=== PATIENT | female | born 1960 | race Two or more races ===

== ENCOUNTER 2017-09-09 14:50 | Emergency (ER) | payer SELFPAY ==
[2017-09-09 17:27] VITALS: BP 137/88
--- NOTE | 2017-09-10 06:39 | ED ---
Influenza-Like Illness - HPI Summary HPI Summary: Patient is a 57 yo F from [place] with flu like symptoms of cough, fever x 2 days , and muscle aches. She states the symptoms have begun to improve just today. 2 others in the home have also had tested positive for the flu. She denies fevers today, however had fever of 100.5 over the past 2 days. Otherwise healthy, takes no medications. Also states she has had some upper back/neck pain after her flight. - History of Current Complaint Chief Complaint: EDGeneral Time Seen by Provider: 09/09/17 14:52 Hx Obtained From: Patient Onset/Duration: Sudden Onset Severity: Mild Associated Signs & Symptoms: Fever, T Max - 100.5, F/C, Myalgia Related Hx: Possible Flu/Infectious Exposure - Risk Factors Influenza Risk Factors: Negative - Allergy/Home Medications Allergies/Adverse Reactions: Allergies Allergy/AdvReac Type Severity Reaction Status Date / Time No Known Allergies Allergy Verified 09/09/17 15:04 PMH/Surg Hx/FS Hx/Imm Hx Previously Healthy: Yes - Immunization History Hx Pertussis Vaccination: No Immunizations Up to Date: Unable to Obtain/Confirm Infectious Disease History: No Infectious Disease History: Reports: Traveled Outside the [place] in Last 30 Days - Social History Occupation: Employed Full-time Lives: With Family Alcohol Use: Rare Hx Substance Use: No Substance Use Type: Reports: None Hx Tobacco Use: No Smoking Status (MU): Never Smoked Tobacco Review of Systems Positive: Fever, Chills, Fatigue, Skin Diaphoresis Negative: Photophobia, Blurred Vision Negative: Sore Throat, Ear Ache, Nasal Discharge Positive: Cough. Negative: Shortness Of Breath Gastrointestinal: Negative Positive: Arthralgia, Myalgia - throughout/+ neck Skin: Negative Neurological: Negative All Other Systems Reviewed And Are Negative: Yes Physical Exam Triage Information Reviewed: Yes Vital Signs On Initial Exam: Initial Vitals Temp Pulse Resp BP Pulse Ox 97.3 F 60 16 118/78 97 09/09/17 15:01 09/09/17 15:01 09/09/17 15:01 09/09/17 15:01 09/09/17 15:01 Vital Signs Reviewed: Yes Appearance: Positive: Well-Appearing, Well-Nourished Skin: Positive: Warm, Skin Color Reflects Adequate Perfusion Head/Face: Positive: Normal Head/Face Inspection Eyes: Positive: EOMI, SAMRA, Conjunctiva Clear Neck: Positive: Supple, No Lymphadenopathy Respiratory/Lung Sounds: Positive: Clear to Auscultation, Breath Sounds Present Cardiovascular: Positive: RRR, Pulses are Symmetrical in both Upper and Lower Extremities Musculoskeletal: Positive: Pain @ - upper back throughout without cervical spine tenderness Neurological: Positive: Sensory/Motor Intact, Alert, Oriented to Person Place, Time, Speech Normal Psychiatric: Positive: Affect/Mood Appropriate Diagnostics - Vital Signs Vital Signs Temp Pulse Resp BP Pulse Ox 09/09/17 17:24 97.7 F 101 18 137/88 99 09/09/17 15:01 97.3 F 60 16 118/78 97 - Laboratory Lab Results: Lab Results 09/09/17 Range/Units 16:07 Influenza A (Rapid) Positive A (Negative) Influenza B (Rapid) Negative (Negative) Lab Statement: Any lab studies that have been ordered have been reviewed, and results considered in the medical decision making process. Flu Symptom Course/Dx - Course Course Of Treatment: Patient is tested for influenza. Flu A positive. Denies cough or fever today. Lungs CTA, RRR. Influenza A positive. She is treated with Tamiflu. No cervical spine tenderness. Dx with muscular ache and flu A. - Diagnoses Differential Diagnosis/HQI/PQRI: Positive: Influenza Provider Diagnoses: Influenza A Discharge - Sign-Out/Discharge Documenting (check all that apply): Discharge/Admit/Transfer - Discharge Plan Condition: Stable Disposition: HOME Prescriptions: Oseltamivir CAP* [Tamiflu CAP*] 75 mg PO BID #10 cap Patient Education Materials: Influenza (ED) Referrals: No Primary Care Phys,NOPCP [Primary Care Provider] - Additional Instructions: Tamiflu twice daily x 5 days Keep mouth covered when cough Wash hands frequently - Billing Disposition and Condition Condition: STABLE Disposition: Home
== END 2017-09-09 17:24 | disposition home or self-care (01) ==
LOC: ED 14:50
DX: J10.1 Influenza due to other identified influenza virus with other respiratory manifestations (principal); R50.9 Fever, unspecified; R05 Cough
CPT/HCPCS: 99282